=== PATIENT | male | born 1975 | race Caucasian/White ===

== ENCOUNTER 2024-04-19 13:04 | Emergency (ER) | payer SELFPAY ==
[2024-04-19] MEDS: Albuterol/Ipratropium 3.0-0.5 MG/3 ML Neb Soln NEB ONE (13:28)
[2024-04-19] MEDS: methylPREDNISolone Sodium Succinate 125 MG/2 ML SDV IM ONE (13:29)
[2024-04-19 14:24] LABS: BASOPHILS ABSOLUTE AUTO 0.1 x10-3/uL (0.0-0.3); BASOPHILS PERCENT AUTO 0.6 % (0.3-3.8); EOSINOPHILS ABSOLUTE AUTO 0.1 x10-3/uL (0.0-0.6); EOSINOPHILS PERCENT AUTO 1.4 % (0.1-6.8); HEMATOCRIT 37.9 % (38.3-50.1); HEMOGLOBIN 12.7 g/dL (12.9-17.7); LYMPHOCYTES ABSOLUTE AUTO 1.6 x10-3/uL (0.5-4.5); LYMPHOCYTES PERCENT AUTO 17.1 % (15.8-45.3); MEAN CORPUSCULAR HEMOGLOBIN 32.2 pg (27.0-33.3); MEAN CORPUSCULAR HGB CONC 33.5 g/dL (28.7-35.3); MEAN CORPUSCULAR VOLUME 96.2 fL (80.8-98.7); MEAN PLATELET VOLUME 8.8 fL (6.7-11.0); MONOCYTES ABSOLUTE AUTO 0.7 x10-3/uL (0.0-1.2); MONOCYTES PERCENT AUTO 7.5 % (5.5-15.2); NEUTROPHILS ABSOLUTE AUTO 7.1 x10-3/uL (1.7-6.9); NEUTROPHILS PERCENT AUTO 73.4 % (40.3-71.8); PLATELET COUNT,PLT 254 x10(3)uL (117-477); RED BLOOD CELL COUNT 3.94 x10(6)uL (3.90-5.90); RED CELL DISTRIBUTION WIDTH 14.9 % (12.4-15.0); WHITE BLOOD CELL COUNT,WBC 9.6 x10-3/uL (3.2-10.1)
[2024-04-19 14:30] LABS: BLOOD UREA NITROGEN,BUN 14 mg/dL (7-18); BUN/CREATININE RATIO 12.7 (9-20); CALCIUM 9.1 mg/dL (8.6-10.2); CARBON DIOXIDE,CO2 24 mmol/L (21-32); CHLORIDE,CL 109 mmol/L (100-110); CREATININE 1.1 mg/dL (0.70-1.30); ESTIMATED GFR 83 mL/min (>60); GLUCOSE RANDOM 120 mg/dL (80-116); POTASSIUM,K 3.3 mmol/L (3.5-5.3); SODIUM,NA 145 mmol/L (135-145)
[2024-04-19 14:35] LABS: PROTHROMBIN TIME 10.4 sec (9.0-11.1)
[2024-04-19 14:36] LABS: A/G RATIO 1.1; ALANINE AMINOTRANSFERASE,ALT 28 U/L (12-36); ALBUMIN 3.5 g/dL (3.5-5.2); ALKALINE PHOSPHATASE 76 IU/L (56-112); ASPARTATE AMNIOTRANSFERASE,AST 20 IU/L (5-25); BILIRUBIN TOTAL 0.5 mg/dL (0.1-1.3); PROTEIN TOTAL,TP 6.6 g/dL (6.0-8.0)
[2024-04-19] MEDS: Metolazone 2.5 MG Tab PO ONE (14:36)
[2024-04-19] MEDS: Furosemide 40 MG/4 ML VIAL IVPUSH ONE (14:36)
[2024-04-19 14:37] LABS: PTT,PARTIAL THROMBOPLSTIN TIME 25.8 SECONDS (24.4-33.2)
[2024-04-19 14:43] LABS: TROPONIN I 40.8 pg/mL (4.0-60.3)
[2024-04-19] MEDS: Iopamidol 755 Mg/ML 100 ML Bottle IV ONE (15:40)
[2024-04-19] MEDS: Potassium Chloride 20 MEQ Tab.ER PO ONE (17:02)
== END 2024-04-19 17:46 ==
LOC: FB.ED 13:04
DX: I50.9 Heart failure, unspecified (principal); E87.6 Hypokalemia; F17.210 Nicotine dependence, cigarettes, uncomplicated; Z88.8 Allergy status to other drugs, medicaments and biological substances
CPT/HCPCS: 71045; 71275; 80053; 83880; 84484; 85025; 85379; 85610; 85730; 93005; 93010; 94640; 96372; 96374; 99285; 99285-25; A9270-GY; J1940; J2919; J7620; Q9967